=== PATIENT | female | born 1990 | race Caucasian/White ===

== ENCOUNTER 2024-10-19 21:09 | Emergency (ER) | payer OTHER, SELFPAY ==
[2024-10-19 21:17] VITALS: BP 164/113; PULSE 105; TEMP 36.6; O2SAT 95; BMI 56.6
--- NOTE | 2024-10-19 21:25 | CT_ITS ---
The [address] [address] Patient Name: NA WALTERS MRN: [id number] date: 1990 Sex: F Assigned Patient Location: ER Current Patient Location: ER Accession/Order Number: [id number] Exam Date: 10/19/2024 22:10 Report Date: 10/19/2024 23:14 At the request of: NILO GODDARD Procedure: CT abdomen pelvis wo con EXAMINATION:CT abdomen pelvis wo con INDICATION:flank pain, stone study COMPARISON:07/29/2022 TECHNIQUE:Multiple thin section transaxial slices were acquired through the abdomen and pelvis without intravenous contrast. Coronal and sagittal reconstructed images were reviewed. Oral contrastWas not administered. FINDINGS: LOWER CHEST: The lower chest is unremarkable. LIVER: The liver is enlarged measuring 27.8 cm in craniocaudad dimension. There is severe diffuse hepatic steatosis with focal fatty sparing along the gallbladder fossa. GALLBLADDER AND BILIARY SYSTEM: No obvious ductal dilation. No calcified stones. SPLEEN: The spleen is unremarkable. PANCREAS: The pancreas is unremarkable. ADRENAL GLANDS: There is nodular thickening of the left adrenal gland containing macroscopic fat measuring 1.3 cm consistent with a benign adrenal adenoma. This is stable from the prior exam. The right adrenal gland is within normal limits. KIDNEYS AND URETERS: There is no hydronephrosis of the kidneys.No obstructing urologic calcifications are present. VASCULATURE: Vascularity is unremarkable. PERITONEUM/RETROPERITONEUM: Peritoneum/retroperitoneum is unremarkable. LYMPH NODES: No suspicious lymphadenopathy. GASTROINTESTINAL TRACT: The bowel is normal in caliber.Inflammatory changes are present adjacent to small bowel loops in the pelvis which may represent enteritis.The appendix is absent. BLADDER: The bladder is decompressed and not adequately evaluated. REPRODUCTIVE SYSTEM: The uterus is absent. BODY WALL: There are postsurgical changes along the anterior abdominal wall. There is a small fat-containing ventral hernia. BONES: Osseous structures are unremarkable. CT/CT abdomen pelvis wo con IMPRESSION: No obstructive uropathy. Faint inflammatory changes of small bowel loops in the pelvis are present and are concerning for enteritis. Electronically authenticated by: ALONSO PALENCIA Date: 10/19/2024 23:14
--- NOTE | 2024-10-19 21:26 | ED_ITS ---
HPI - Abdominal Pain General Chief Complaint: Abdominal Pain Stated Complaint: FLANK PAIN Time Seen by Provider: 10/19/24 21:20 Source: patient Mode of arrival: walk-in Limitations: no limitations History of Present Illness HPI narrative: 34-year-old female presents to the emergency department with complaint of acute onset of right flank pain that has since migrated to the right mid, lower abdominal region. Describes as sharp. Onset around 8 PM this past evening with associated nausea. History of kidney stones in the past and states this feels the same as prior. Denies any vomiting, dysuria, frequency, hematuria. Quality:?Sharp Severity:?Moderate Timing:?As above, constant Context: Normal setting and activity? Modifying factors:?None Associated symptoms: As above Related Data Home Medications ?Medication ?Instructions ?Recorded ?Confirmed gabapentin 100 mg capsule mg 10/19/24 metformin 1,000 mg tablet mg 10/19/24 methimazole 5 mg tablet mg 10/19/24 metoprolol succinate 25 mg mg PO 10/19/24 tablet,extended release 24 hr venlafaxine 150 mg mg PO 10/19/24 capsule,extended release 24 hr Allergies Allergy/AdvReac Type Severity Reaction Status Date / Time sulfamethoxazole (From Allergy Mild Rash Verified 10/19/24 21:17 Bactrim) trimethoprim (From Bactrim) Allergy Mild Rash Verified 10/19/24 21:17 Review of Systems ROS Narrative CONST: Denies any fever, chills RESP: Denies any shortness of breath CV: Denies any chest pain GI: +abd pain, nausea.? Denies any vomiting, diarrhea : + Flank pain. Denies any dysuria, hematuria MS: Denies any back pain, myalgias SKIN: Denies any color change, rash NEURO: Denies numbness, weakness PSYCHIATRIC: Denies confusion, agitation [facility] Medical History (Updated 10/19/24 @ 22:01 by JOEY Garcia) Kidney stone ?N20.0 - Calculus of kidney (ICD-10) Social History Little interest or pleasure in doing things: not at all Feeling down, depressed, or hopeless: not at all Exam Narrative Exam Narrative: Vital signs reviewed Nurses notes noted CONST: Nontoxic, uncomfortable appearing, well nourished, in no distress.? No diaphoresis.?? HENT: normocephalic, atraumatic, moist mucous membrane, no abnormalities of the nose noted, hearing normal EYES: normal appearing conjunctiva, no apparent discharge bilat NECK: normal appearance CV: normal rate, regular rhythm, no murmur RESP: normal effort, speaking in complete sentences. Lung sounds clear and equal bilat.? No wheezes, rales, rhonchi GI: normal bowel sounds, soft, no distension, nontender : no CVA tenderness MS: no edema, tenderness SKIN: no pallor NEURO: A&Ox 3, no focal findings PSYCH: Tearful Constitutional Vital Signs, click to edit/add: Last Vital Signs Temp 97.9 F 10/19/24 21:17 Pulse 105 H 10/19/24 21:17 Resp 16 10/19/24 21:17 BP 164/113 H 10/19/24 21:17 Pulse Ox 95 10/19/24 21:17 O2 Del Method Room Air 10/19/24 21:17 Course Vital Signs Vital signs: Vital Signs Temperature 97.9 F 10/19/24 21:17 Pulse Rate 105 H 10/19/24 21:17 Respiratory Rate 16 10/19/24 21:17 Blood Pressure 164/113 H 10/19/24 21:17 Pulse Oximetry 95 10/19/24 21:17 Oxygen Delivery Method Room Air 10/19/24 21:17 Temperature 97.9 F 10/19/24 21:17 Pulse Rate 105 H 10/19/24 21:17 Respiratory Rate 16 10/19/24 21:17 Blood Pressure 164/113 H 10/19/24 21:17 Pulse Oximetry 95 10/19/24 21:17 Oxygen Delivery Method Room Air 10/19/24 21:17 MDM - Abdominal Pain MDM Narrative Medical decision making narrative: 34-year-old female presents to the emergency department with acute onset of flank and mid, lower abdominal pain similar to prior kidney stones. Has associated nausea. Denies any fever, dysuria, hematuria On arrival, afebrile, vital signs stable. On exam, uncomfortable appearing, otherwise nontoxic, in no acute distress patient. Heart regular rate and rhythm. Lung sounds clear and equal bilaterally. No appreciable CVA tenderness at this time. Denies any abdominal tenderness. PLEASE NOTE: Portions of the medical record may have been produced using electronic forming fixer and may contain errors with respect to translation of words which may not have been identified prior to finalization of the chart. Discharge Plan Discharge Chief Complaint: Abdominal Pain Clinical Impression: Acute abdominal pain in right flank, Nausea Prescriptions / Home Meds: No Action venlafaxine 150 mg capsule,extended release 24hr PO metformin 1,000 mg tablet methimazole 5 mg tablet gabapentin 100 mg capsule metoprolol succinate 25 mg tablet extended release 24 hr PO Print Language: Dutch Referrals: ESPERANZA KHAN [Primary Care Provider] - 1 week
[2024-10-19 22:05] LABS: Basophils Absolute Auto 0.1 10^3/uL (0.0-0.1); Basophils Percent Auto 0.9 % (0.2-2.0); Eosinophils Absolute Auto 0.3 10^3/uL (0.0-0.7); Eosinophils Percent Auto 3.9 % (0.9-7.0); Hematocrit 42.5 % (36.0-48.0); Immature Granulocytes Abs Auto 0.03 10^3/uL (0.00-0.03); Immature Granulocytes Pct Auto 0.4 % (0.0-0.5); Lymphocytes Absolute Auto 2.1 10^3/uL (1.2-3.8); Lymphocytes Percent Auto 26.3 % (20.5-60.0); Mean Corpuscular HGB Conc 32.9 g/dL (29.9-35.2); Mean Corpuscular Hemoglobin 29.8 pg (26.7-34.0); Mean Corpuscular Volume 90.4 fL (81.0-99.0); Mean Platelet Volume 9.8 fL (9.5-13.5); Monocytes Absolute Auto 0.4 10^3/uL (0.3-0.8); Monocytes Percent Auto 4.9 % (1.7-12.0); Neutrophils Percent Auto 63.6 % (43.0-75.0); Platelet Count 267 10^3/uL (150-450); Red Cell Distribution Width 13.7 % (11.0-15.0); White Blood Count 7.9 10^3/uL (4.0-11.0)
[2024-10-19] MEDS: ONDANSETRON PF 4 MG/2 ML VIAL IV (22:05)
[2024-10-19] MEDS: KETOROLAC TROMETHAMINE 30 MG/ML VIAL 15 MG IVP (22:05)
[2024-10-19 22:06] LABS: Bilirubin Urine NEGATIVE (NEGATIVE); Blood Urine NEGATIVE (NEGATIVE); Clarity Urine CLEAR (CLEAR); Color Urine LT. YELLOW (YELLOW); Glucose Urine UA NEGATIVE (NEGATIVE); Ketones Urine NEGATIVE (NEGATIVE); Leukocyte Esterase Urine SMALL (NEGATIVE); Nitrite Urine NEGATIVE (NEGATIVE); Protein Urine NEGATIVE (NEG/TRACE); Urobilinogen Urine 0.2 EU/dL (0.2-1.0); pH Urine 6.5 (5.0-9.0)
[2024-10-19] MEDS: MORPHINE SULFATE 4 MG/ML VIAL IV (22:07)
[2024-10-19] MEDS: 0.9 % SODIUM CHLORIDE 1,000 ML 999 ML IV (22:07)
[2024-10-19 22:16] LABS: Bacteria Urine MODERATE #/HPF (NONE SEEN); Cast Seen? NONE SEEN #/LPF (NONE SEEN); Crystals Seen? None Seen #/HPF (None Seen); Mucus Urine NONE SEEN (NONE SEEN); RBC Urine 0-2 #/HPF (0-2); Squamous Epithelial Cell Urine FEW #/LPF (NONE/RARE); Urine Culture Indicated YES
[2024-10-19 22:19] LABS: Anion Gap 13.5; BUN Creatinine Ratio 14.1; Calcium 9.3 mg/dL (8.5-10.1); Carbon Dioxide 28.7 mmol/L (21.0-32.0); Chloride 100 mmol/L (98-107); Estimated GFR (African America >60 (>=60 mL/min/1.73m^2); Estimated GFR (Non-African Ame >60 (>=60 mL/min/1.73m^2); Glucose 154 mg/dL (74-106); Potassium 4.2 mmol/L (3.5-5.1); Sodium 138 mmol/L (136-145)
[2024-10-19] MEDS: HYDROMORPHONE HCL 1 MG/ML CARTRIDGE IV (22:54)
[2024-10-19 23:17] VITALS: BP 132/78; PULSE 74; O2SAT 97
--- NOTE | 2024-10-19 23:28 | PC.NURSE ---
Pt is resting quietly at this time. Stated no pain after receiving IV dilaudid.
[2024-10-20] MEDS: HYDROCODONE/ACET 5-325 MG TABLET 2 TAB PO (00:09)
[2024-10-20] MEDS: ONDANSETRON 4 MG RAPDIS TABLET SL (00:10)
[2024-10-20] MEDS: CEPHALEXIN 500 MG CAPSULE PO (00:10)
[2024-10-20 00:36] VITALS: PULSE 78; O2SAT 98
== END 2024-10-20 00:42 | disposition home or self-care (01) ==
PROVIDERS: Physician Assistant; Emergency Provider Emergency Medicine; PCP Family Medicine
DX: R10.9 Unspecified abdominal pain (principal); R11.0 Nausea; Z87.442 Personal history of urinary calculi
CPT/HCPCS: 36415; 74176; 80048; 81001; 85025; 87086; 96374; 96375; 99285; J1171; J1885; J2270; J2405; Q0162